=== PATIENT | female | born 1955 | race Caucasian/White ===

== ENCOUNTER → 2020-02-13 | Outpatient (CLI) | payer OTHER | END | disposition home or self-care (01) | LOC: CFH 07:39 | PROVIDERS: ATTEND Family Medicine | DX: Z12.31 Encounter for screening mammogram for malignant neoplasm of breast (principal); I08.3 Combined rheumatic disorders of mitral, aortic and tricuspid valves; R01.1 Cardiac murmur, unspecified | CPT/HCPCS: 77067; 93306 ==